=== PATIENT | female | born 1965 | race Caucasian/White ===

== ENCOUNTER → 2016-10-26 | Outpatient (CLI) | payer OTHER ==
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
== END | disposition home or self-care (01) ==
LOC: RAD 09:30
PROVIDERS: ATTEND Neuromusculoskeletal Medicine, Sports Medicine
DX: M25.511 Pain in right shoulder (principal); M13.88 Other specified arthritis, other site; R20.0 Anesthesia of skin
CPT/HCPCS: 73030